=== PATIENT | male | born 1945 | race African-American/Black ===

== ENCOUNTER 2017-03-15 13:17 | Observation (INO) ==
[2017-03-15 14:17] LABS: PT Patient Result 10.3 SECS
[2017-03-15 14:28] LABS: Alanine Aminotransferase 13 U/L (16-61); Albumin 3.9 G/DL (3.4-5.0); Alkaline Phosphatase 77 U/L (45-117); Aspartate Amino Transferase 14 U/L (0-37); Blood Urea Nitrogen 22 MG/DL (7-18); Calcium 9.5 MG/DL (8.5-10.1); Glucose 161 MG/DL (74-106); Magnesium 1.9 MG/DL (1.8-2.4); Osmolality,Calculated 278.8 MOS/KG (273-304); Potassium 3.9 MMOL/L (3.5-5.1); Sodium 137 MMOL/L (136-145); Total Protein 8.8 G/DL (6.4-8.3); Troponin I Only < 0.015 NG/ML (0.00-0.045)
[2017-03-15 16:55] LABS: Basophils % 0.4 % (0.0-0.8); Eosinophils % 0.7 % (0.00-10.9); Hematocrit 40.3 VOL% (42.0-52.0); Hemoglobin 13.5 GM/DL (14.0-18.0); Immature Granulocytes % 0.4 %; Immature Granulocytes Absolute 0.02 #; Lymphocytes # 1.5 10*3/uL (1.4-4.0); Lymphocytes % 27.6 % (21.2-54.2); Mean Corpuscular HGB Conc 33.5 GM/DL (32-36); Mean Corpuscular Hemoglobin 29 PG (27-34); Mean Corpuscular Volume 87.8 FL (87-102); Mean Platelet Volume 11.3 FL (9.6-12.0); Monocytes # 0.4 10*3/uL (0.11-0.8); Monocytes % 7.3 % (1.7-12.7); Neutrophils # 3.5 10*3/uL (1.4-7.4); Neutrophils % 63.6 % (38.7-73.9); Platelet Count 238 T/CUMM (130-400); Red Blood Count 4.59 MC/CUMM (3.8-5.5); White Blood Count 5.5 T/CUMM (4-12)
[2017-03-15] MEDS ORDERED: KETOROLAC 30 MG/1 ML VIAL IV STA (18:28)
[2017-03-15] MEDS ORDERED: ASPIRIN 325 MG TABLET PO STA (18:28)
[2017-03-15] MEDS ORDERED: PANTOPRAZOLE 40 MG VIAL IV STA (18:29)
[2017-03-15] MEDS ORDERED: ASPIRIN 325 MG TABLET ONE (18:39)
[2017-03-15] MEDS ORDERED: KETOROLAC 30 MG/1 ML VIAL ONE ×2 (18:39→20:01)
[2017-03-15] MEDS ORDERED: PANTOPRAZOLE 40 MG VIAL IV ONE ×2 (18:39→20:01)
[2017-03-15] MEDS ORDERED: DONEPEZIL 10 MG TABLET PO SCH (21:00)
[2017-03-15] MEDS ORDERED: ONDANSETRON 4 MG/2 ML VIAL IV PRN (21:03)
[2017-03-15] MEDS ORDERED: ONDANSETRON ODT 4 MG TABLET PO PRN (21:07)
[2017-03-15] MEDS ORDERED: LORazepam 0.5 MG TABLET PO PRN (21:07)
[2017-03-15] MEDS ORDERED: IBUPROFEN 800 MG TABLET PO PRN (21:07)
[2017-03-16 00:02] LABS: Albumin 3.7 G/DL (3.4-5.0); Bilirubin,Total 0.5 MG/DL (0.2-1.0); Calcium 8.9 MG/DL (8.5-10.1); Total Protein 7.6 G/DL (6.4-8.3)
[2017-03-16 00:14] LABS: Magnesium 1.9 MG/DL (1.8-2.4); Risk Ratio 2.84
[2017-03-16] MEDS: INSULIN REGULAR 100 UNIT/ML SUBCUT SCH ×3 (00:20→13:26)
[2017-03-16] MEDS: METOPROLOL TARTRATE 25 MG TABLET PO SCH ×2 (00:20→10:16)
[2017-03-16] MEDS ORDERED: METHOCARBAMOL 750 MG TABLET PO SCH (09:00)
[2017-03-16] MEDS ORDERED: ASPIRIN EC 325 MG TABLET PO SCH (09:00)
[2017-03-16] MEDS ORDERED: amLODIPine 5 MG TABLET PO SCH (09:00)
[2017-03-16] MEDS ORDERED: hydrALAZINE 10 MG TABLET PO SCH (09:00)
[2017-03-16] MEDS ORDERED: ENOXAPARIN 40 MG/0.4 ML SYRINGE SUBCUT SCH (09:00)
[2017-03-16] MEDS ORDERED: CHLORTHALIDONE 25 MG TABLET PO SCH (09:00)
[2017-03-16] MEDS ORDERED: GABAPENTIN 100 MG CAPSULE PO SCH (09:00)
[2017-03-16] MEDS ORDERED: SUCRALFATE 1 GM TABLET PO SCH (09:00)
[2017-03-16] MEDS ORDERED: LISINOPRIL 20 MG TABLET PO SCH (09:00)
[2017-03-16] MEDS ORDERED: MULTIVITAMIN (CENTRUM) TABLET PO SCH (09:00)
[2017-03-16 11:22] VITALS: BP 179/80
[2017-03-16] MEDS ORDERED: DEXTROSE 50% 25 GM/50 ML VIAL IV PRN (13:22)
[2017-03-16] MEDS ORDERED: GLUCAGON 1 MG VIAL IM PRN (13:22)
[2017-03-16] MEDS ORDERED: ROSUVASTATIN 20 MG TABLET PO SCH (21:00)
[2017-03-22] MEDS ORDERED: ERGOCALCIFEROL 50,000 UNIT CAPSULE PO SCH (09:00)
== END 2017-03-16 15:10 | disposition home or self-care (01) ==
LOC: N.EDINP 13:17 → N.ED 13:17 → N.TELES 21:46
PROVIDERS: ADMIT Internal Medicine; ATTEND Internal Medicine

== ENCOUNTER 2018-02-21 08:45 | Inpatient (IN) ==
[2018-02-21] MEDS ORDERED: SODIUM CHLORIDE 0.9% 1,000 ML IV STA ×2 (09:16→10:12)
[2018-02-21] MEDS ORDERED: ONDANSETRON 4 MG/2 ML VIAL IV STA (09:16)
[2018-02-21 09:43] LABS: Basophils % 0.5 % (0.0-0.8); Eosinophils # 0.2 10*3/uL (0.0-0.87); Hematocrit 29.3 VOL% (42.0-52.0); Hemoglobin 9.9 GM/DL (14.0-18.0); Immature Granulocytes % 0.6 %; Immature Granulocytes Absolute 0.05 #; Lymphocytes # 1.5 10*3/uL (1.4-4.0); Mean Corpuscular HGB Conc 33.8 GM/DL (32-36); Mean Corpuscular Hemoglobin 29 PG (27-34); Mean Corpuscular Volume 86.9 FL (87-102); Mean Platelet Volume 10.7 FL (9.6-12.0); Monocytes # 0.6 10*3/uL (0.11-0.8); Monocytes % 7.1 % (1.7-12.7); Neutrophils % 71.8 % (38.7-73.9); Platelet Count 388 T/CUMM (130-400); Red Blood Count 3.37 MC/CUMM (3.8-5.5); White Blood Count 8.4 T/CUMM (4-12)
[2018-02-21 10:06] LABS: Alanine Aminotransferase 12 U/L (16-61); Alkaline Phosphatase 73 U/L (45-117); Aspartate Amino Transferase 11 U/L (0-37); Bilirubin,Total < 0.39 MG/DL (0.2-1.0); Blood Urea Nitrogen 45 MG/DL (7-18); Calcium 9.4 MG/DL (8.5-10.1); Glucose 393 MG/DL (74-106); Osmolality,Calculated 289.7 MOS/KG (273-304); Potassium 3.7 MMOL/L (3.5-5.1); Prealbumin 14.9 MG/DL (20-40); Sodium 131 MMOL/L (136-145)
[2018-02-21] MEDS ORDERED: INSULIN LISPRO 100 UNIT/ML SUBCUT STA (10:13)
[2018-02-21] MEDS ORDERED: GLUCAGON 1 MG VIAL IM PRN (12:19)
[2018-02-21] MEDS ORDERED: DEXTROSE 50% 25 GM/50 ML VIAL IV PRN (12:19)
[2018-02-21] MEDS: PANTOPRAZOLE 40 MG TABLET PO SCH ×3 (16:23→21:55)
[2018-02-21] MEDS: SODIUM CHLORIDE 0.9% 1,000 ML IV SCH ×2 (16:24→22:56)
[2018-02-21] MEDS: GABAPENTIN 100 MG CAPSULE PO SCH ×2 (16:24→21:55)
[2018-02-21] MEDS: INSULIN REGULAR 100 UNIT/ML SUBCUT SCH (18:17)
[2018-02-21] MEDS: INSULIN GLARGINE 100 UNIT/ML SUBCUT SCH (20:53)
[2018-02-21] MEDS ORDERED: NON-FORMULARY MEDICATION (Metformin Hcl [Metformin Hcl] 1,000 MG) PO SCH (21:00)
[2018-02-21] MEDS: METOCLOPRAMIDE 10 MG/10 ML UDCUP PO SCH (21:55)
[2018-02-21] MEDS: DONEPEZIL 10 MG TABLET PO SCH (21:55)
[2018-02-22] MEDS: INSULIN REGULAR 100 UNIT/ML SUBCUT SCH ×4 (01:29→18:00)
[2018-02-22] MEDS: SODIUM CHLORIDE 0.9% 1,000 ML IV SCH ×2 (01:30→20:10)
[2018-02-22 05:18] LABS: Basophils % 0.3 % (0.0-0.8); Eosinophils # 0.1 10*3/uL (0.0-0.87); Eosinophils % 2.2 % (0.00-10.9); Hematocrit 25.4 VOL% (42.0-52.0); Hemoglobin 8.2 GM/DL (14.0-18.0); Immature Granulocytes % 0.6 %; Immature Granulocytes Absolute 0.04 #; Lymphocytes # 1.4 10*3/uL (1.4-4.0); Mean Corpuscular HGB Conc 32.3 GM/DL (32-36); Mean Corpuscular Hemoglobin 29 PG (27-34); Mean Corpuscular Volume 89.1 FL (87-102); Mean Platelet Volume 10.7 FL (9.6-12.0); Monocytes # 0.6 10*3/uL (0.11-0.8); Monocytes % 9.1 % (1.7-12.7); Neutrophils # 4.1 10*3/uL (1.4-7.4); Neutrophils % 64.8 % (38.7-73.9); Platelet Count 260 T/CUMM (130-400); Red Blood Count 2.85 MC/CUMM (3.8-5.5); Red Cell Distribution Width 12.2 % (9.3-17.3); White Blood Count 6.3 T/CUMM (4-12)
[2018-02-22 05:54] LABS: Calcium 7.9 MG/DL (8.5-10.1); Osmolality,Calculated 296.1 MOS/KG (273-304); Potassium 3.6 MMOL/L (3.5-5.1)
[2018-02-22] MEDS: METOCLOPRAMIDE 10 MG/10 ML UDCUP PO SCH ×4 (08:00→21:45)
[2018-02-22] MEDS: MULTIVITAMIN (CENTRUM) TABLET PO SCH (09:00)
[2018-02-22] MEDS: PANTOPRAZOLE 40 MG TABLET PO SCH ×2 (09:00→21:45)
[2018-02-22] MEDS ORDERED: SUCRALFATE 1 GM TABLET PO SCH (09:00)
[2018-02-22] MEDS: THIAMINE 100 MG TABLET PO SCH (09:00)
[2018-02-22] MEDS: CYANOCOBALAMIN 100 MCG TABLET PO SCH (09:00)
[2018-02-22] MEDS: ASPIRIN CHEW 81 MG TABLET PO SCH (09:00)
[2018-02-22] MEDS: GABAPENTIN 100 MG CAPSULE PO SCH ×2 (09:00→21:45)
[2018-02-22] MEDS: MORPHINE 4 MG/1 ML VIAL IV PRN ×2 (13:49→21:45)
[2018-02-22] MEDS: ONDANSETRON 4 MG/2 ML VIAL IV PRN ×2 (13:49→21:46)
[2018-02-22] MEDS: DONEPEZIL 10 MG TABLET PO SCH (21:45)
[2018-02-22] MEDS: INSULIN GLARGINE 100 UNIT/ML SUBCUT SCH (21:45)
[2018-02-23] MEDS: INSULIN REGULAR 100 UNIT/ML SUBCUT SCH ×4 (01:26→18:35)
[2018-02-23] MEDS: SODIUM CHLORIDE 0.9% 1,000 ML IV SCH ×2 (04:52→05:20)
[2018-02-23 05:11] LABS: Basophils % 0.3 % (0.0-0.8); Eosinophils % 0.4 % (0.00-10.9); Hematocrit 31.8 VOL% (42.0-52.0); Hemoglobin 10.1 GM/DL (14.0-18.0); Immature Granulocytes % 0.6 %; Immature Granulocytes Absolute 0.06 #; Lymphocytes # 1.4 10*3/uL (1.4-4.0); Lymphocytes % 13.6 % (21.2-54.2); Mean Corpuscular HGB Conc 31.8 GM/DL (32-36); Mean Corpuscular Hemoglobin 29 PG (27-34); Mean Corpuscular Volume 91.1 FL (87-102); Mean Platelet Volume 10.3 FL (9.6-12.0); Monocytes # 0.6 10*3/uL (0.11-0.8); Monocytes % 5.7 % (1.7-12.7); Neutrophils # 8.2 10*3/uL (1.4-7.4); Neutrophils % 79.4 % (38.7-73.9); Platelet Count 327 T/CUMM (130-400); Red Blood Count 3.49 MC/CUMM (3.8-5.5); Red Cell Distribution Width 12.1 % (9.3-17.3); White Blood Count 10.4 T/CUMM (4-12)
[2018-02-23 05:35] LABS: Calcium 8.6 MG/DL (8.5-10.1); Osmolality,Calculated 283.7 MOS/KG (273-304); Potassium 4.2 MMOL/L (3.5-5.1)
[2018-02-23] MEDS: METOCLOPRAMIDE 10 MG/10 ML UDCUP PO SCH ×4 (08:00→20:38)
[2018-02-23] MEDS: GABAPENTIN 100 MG CAPSULE PO SCH ×3 (09:00→20:38)
[2018-02-23] MEDS ORDERED: PROPOFOL 200 MG/20 ML VIAL IV ONE (09:00)
[2018-02-23] MEDS ORDERED: LIDOCAINE 2% 5 ML VIAL ONE (09:00)
[2018-02-23] MEDS: MULTIVITAMIN (CENTRUM) TABLET PO SCH (09:00)
[2018-02-23] MEDS: ASPIRIN CHEW 81 MG TABLET PO SCH (09:00)
[2018-02-23] MEDS: PANTOPRAZOLE 40 MG TABLET PO SCH ×2 (09:00→20:38)
[2018-02-23] MEDS: THIAMINE 100 MG TABLET PO SCH (09:00)
[2018-02-23] MEDS: CYANOCOBALAMIN 100 MCG TABLET PO SCH (09:00)
[2018-02-23] MEDS ORDERED: MAGNESIUM HYDROXIDE SUSP 30 ML UDCUP PO ONE (12:24)
[2018-02-23] MEDS: INSULIN GLARGINE 100 UNIT/ML SUBCUT SCH (20:38)
[2018-02-23] MEDS: DONEPEZIL 10 MG TABLET PO SCH (20:38)
[2018-02-24 00:06] LABS: Apearance,Urine CLEAR (Clear); Bacteria,Urine Occasional /HPF (Few); Bilirubin,Urine Negative (Negative); Blood, Urine Negative (Negative); Glucose,Urine (UA) >=500 mg/dL (Negative); Ketones,Urine Negative (Negative); Nitrite,Urine Negative (Negative); Protein,Urine Negative; RBC,Urine <1 /HPF (0-4); Urine Color Straw (Yellow); Urine Specific Gravity 1.013 (1.001-1.035); Urine Urobilinogen < 2.0 EU/DL (0.2-1.0); WBC,Urine 1 /HPF (0-6)
[2018-02-24] MEDS: INSULIN REGULAR 100 UNIT/ML SUBCUT SCH ×4 (00:53→17:42)
[2018-02-24] MEDS: SODIUM CHLORIDE 0.9% 1,000 ML IV SCH ×3 (05:22→15:45)
[2018-02-24 06:19] LABS: Calcium 8.4 MG/DL (8.5-10.1); Osmolality,Calculated 277.4 MOS/KG (273-304); Potassium 3.3 MMOL/L (3.5-5.1)
[2018-02-24 07:08] LABS: Basophils % 0.3 % (0.0-0.8); Eosinophils # 0.1 10*3/uL (0.0-0.87); Hematocrit 25.2 VOL% (42.0-52.0); Hemoglobin 8.2 GM/DL (14.0-18.0); Immature Granulocytes % 0.2 %; Immature Granulocytes Absolute 0.02 #; Lymphocytes # 1.4 10*3/uL (1.4-4.0); Lymphocytes % 14.5 % (21.2-54.2); Mean Corpuscular HGB Conc 32.5 GM/DL (32-36); Mean Corpuscular Hemoglobin 29 PG (27-34); Mean Corpuscular Volume 89.7 FL (87-102); Mean Platelet Volume 11.2 FL (9.6-12.0); Monocytes # 0.7 10*3/uL (0.11-0.8); Monocytes % 7.5 % (1.7-12.7); Neutrophils # 7.4 10*3/uL (1.4-7.4); Neutrophils % 76.5 % (38.7-73.9); Red Blood Count 2.81 MC/CUMM (3.8-5.5); Red Cell Distribution Width 12.1 % (9.3-17.3); White Blood Count 9.7 T/CUMM (4-12)
[2018-02-24 07:10] LABS: Platelet Count 259 T/CUMM (130-400)
[2018-02-24] MEDS ORDERED: POTASSIUM CHLORIDE 20 MEQ TABLET PO ONE (07:27)
[2018-02-24] MEDS: ASPIRIN CHEW 81 MG TABLET PO SCH (09:19)
[2018-02-24] MEDS: MULTIVITAMIN (CENTRUM) TABLET PO SCH (09:19)
[2018-02-24] MEDS: PANTOPRAZOLE 40 MG TABLET PO SCH ×2 (09:19→21:14)
[2018-02-24] MEDS: METOCLOPRAMIDE 10 MG/10 ML UDCUP PO SCH ×4 (09:19→21:14)
[2018-02-24] MEDS: GABAPENTIN 100 MG CAPSULE PO SCH ×3 (09:19→21:14)
[2018-02-24] MEDS: THIAMINE 100 MG TABLET PO SCH (09:19)
[2018-02-24] MEDS ORDERED: BISACODYL 5 MG TABLET PO SCH (09:30)
[2018-02-24] MEDS: CYANOCOBALAMIN 100 MCG TABLET PO SCH (10:19)
[2018-02-24] MEDS: DEXTROSE 5% NACL 0.45% 1,000 ML IV SCH (13:06)
[2018-02-24] MEDS ORDERED: BISACODYL 5 MG TABLET PO ONE (14:02)
[2018-02-24] MEDS: INSULIN GLARGINE 100 UNIT/ML SUBCUT SCH (21:14)
[2018-02-24] MEDS: DONEPEZIL 10 MG TABLET PO SCH (21:14)
[2018-02-25] MEDS: INSULIN REGULAR 100 UNIT/ML SUBCUT SCH ×4 (01:19→19:44)
[2018-02-25] MEDS: DEXTROSE 5% NACL 0.45% 1,000 ML IV SCH ×2 (03:20→16:40)
[2018-02-25 05:06] LABS: Basophils % 0.5 % (0.0-0.8); Eosinophils # 0.2 10*3/uL (0.0-0.87); Eosinophils % 2.4 % (0.00-10.9); Hematocrit 26.2 VOL% (42.0-52.0); Hemoglobin 8.5 GM/DL (14.0-18.0); Immature Granulocytes % 0.3 %; Immature Granulocytes Absolute 0.02 #; Lymphocytes # 1.2 10*3/uL (1.4-4.0); Lymphocytes % 19.3 % (21.2-54.2); Mean Corpuscular HGB Conc 32.4 GM/DL (32-36); Mean Corpuscular Hemoglobin 29 PG (27-34); Mean Corpuscular Volume 89.1 FL (87-102); Mean Platelet Volume 10.8 FL (9.6-12.0); Monocytes # 0.7 10*3/uL (0.11-0.8); Monocytes % 11.4 % (1.7-12.7); Neutrophils # 4.2 10*3/uL (1.4-7.4); Neutrophils % 66.1 % (38.7-73.9); Platelet Count 263 T/CUMM (130-400); Red Blood Count 2.94 MC/CUMM (3.8-5.5); Red Cell Distribution Width 11.9 % (9.3-17.3); White Blood Count 6.4 T/CUMM (4-12)
[2018-02-25 05:20] LABS: Calcium 8.4 MG/DL (8.5-10.1); Osmolality,Calculated 277.8 MOS/KG (273-304); Potassium 3.8 MMOL/L (3.5-5.1)
[2018-02-25] MEDS: METOCLOPRAMIDE 10 MG/10 ML UDCUP PO SCH ×4 (07:58→20:27)
[2018-02-25] MEDS ORDERED: BISACODYL 5 MG TABLET PO ONE (08:43)
[2018-02-25] MEDS ORDERED: POLYETHYLENE GLYCOL POWDER 255 GM BOTTLE PO ONE (08:58)
[2018-02-25] MEDS: PANTOPRAZOLE 40 MG TABLET PO SCH ×2 (09:23→20:27)
[2018-02-25] MEDS: CYANOCOBALAMIN 100 MCG TABLET PO SCH (09:23)
[2018-02-25] MEDS: MULTIVITAMIN (CENTRUM) TABLET PO SCH (09:23)
[2018-02-25] MEDS: ASPIRIN CHEW 81 MG TABLET PO SCH (09:23)
[2018-02-25] MEDS: GABAPENTIN 100 MG CAPSULE PO SCH ×3 (09:23→20:26)
[2018-02-25] MEDS: THIAMINE 100 MG TABLET PO SCH (09:23)
[2018-02-25] MEDS: DONEPEZIL 10 MG TABLET PO SCH (20:27)
[2018-02-25] MEDS: INSULIN GLARGINE 100 UNIT/ML SUBCUT SCH (20:27)
[2018-02-26] MEDS: INSULIN REGULAR 100 UNIT/ML SUBCUT SCH ×3 (00:37→12:34)
[2018-02-26] MEDS: DEXTROSE 5% NACL 0.45% 1,000 ML IV SCH (05:08)
[2018-02-26 06:59] LABS: Basophils % 0.5 % (0.0-0.8); Calcium 8.2 MG/DL (8.5-10.1); Eosinophils # 0.2 10*3/uL (0.0-0.87); Eosinophils % 3.6 % (0.00-10.9); Hematocrit 24.5 VOL% (42.0-52.0); Immature Granulocytes % 0.5 %; Immature Granulocytes Absolute 0.03 #; Lymphocytes # 1.3 10*3/uL (1.4-4.0); Lymphocytes % 23.4 % (21.2-54.2); Mean Corpuscular HGB Conc 32.7 GM/DL (32-36); Mean Corpuscular Hemoglobin 29 PG (27-34); Mean Corpuscular Volume 89.4 FL (87-102); Mean Platelet Volume 10.8 FL (9.6-12.0); Monocytes # 0.6 10*3/uL (0.11-0.8); Monocytes % 11.4 % (1.7-12.7); Neutrophils # 3.4 10*3/uL (1.4-7.4); Neutrophils % 60.6 % (38.7-73.9); Osmolality,Calculated 278.4 MOS/KG (273-304); Platelet Count 267 T/CUMM (130-400); Potassium 3.5 MMOL/L (3.5-5.1); Red Blood Count 2.74 MC/CUMM (3.8-5.5); Red Cell Distribution Width 12.4 % (9.3-17.3); White Blood Count 5.6 T/CUMM (4-12)
[2018-02-26] MEDS: METOCLOPRAMIDE 10 MG/10 ML UDCUP PO SCH ×3 (07:30→16:18)
[2018-02-26] MEDS: GABAPENTIN 100 MG CAPSULE PO SCH ×2 (09:00→16:18)
[2018-02-26] MEDS: ASPIRIN CHEW 81 MG TABLET PO SCH ×2 (09:00→12:42)
[2018-02-26] MEDS: THIAMINE 100 MG TABLET PO SCH ×2 (09:00→12:43)
[2018-02-26] MEDS: MULTIVITAMIN (CENTRUM) TABLET PO SCH ×2 (09:00→12:42)
[2018-02-26] MEDS: PANTOPRAZOLE 40 MG TABLET PO SCH ×2 (09:00→12:43)
[2018-02-26] MEDS: CYANOCOBALAMIN 100 MCG TABLET PO SCH ×2 (09:00→12:42)
[2018-02-26] MEDS ORDERED: PNEUMOCOCCAL VACCINE (13 VALENT) 0.5 ML SYRINGE IM ONE (16:27)
[2018-02-26 20:09] VITALS: BP 154/78
== END 2018-02-26 17:25 | disposition home health service (06) | DRG 392 ==
LOC: N.ED 08:45 → N.EDINP 11:32 → N.5E 12:59
PROVIDERS: ADMIT Internal Medicine; ATTEND Internal Medicine

== ENCOUNTER 2018-08-01 15:26 | Inpatient (IN) ==
[2018-08-01 19:02] LABS: Basophils % 0.2 % (0.0-0.8); Eosinophils % 0.1 % (0.00-10.9); Hemoglobin 8.9 GM/DL (14.0-18.0); Immature Granulocytes % 0.8 %; Immature Granulocytes Absolute 0.13 #; Lymphocytes # 1.8 10*3/uL (1.4-4.0); Lymphocytes % 10.5 % (21.2-54.2); Mean Corpuscular HGB Conc 31.8 GM/DL (32-36); Mean Corpuscular Volume 88.6 FL (87-102); Monocytes % 6.4 % (1.7-12.7); Platelet Count 253 T/CUMM (130-400); Red Blood Count 3.16 MC/CUMM (3.8-5.5); Red Cell Distribution Width 13.1 % (9.3-17.3); White Blood Count 16.9 T/CUMM (4-12)
[2018-08-01 19:26] LABS: Albumin 2.6 G/DL (3.4-5.0); Bilirubin,Total 0.6 MG/DL (0.2-1.0); Calcium 8.1 MG/DL (8.5-10.1); Osmolality,Calculated 278.1 MOS/KG (273-304); Total Protein 7.1 G/DL (6.4-8.3)
[2018-08-01] MEDS ORDERED: cefTRIAXone 1,000 MG in SODIUM CHLORIDE 0.9% 100 ML IV STA (20:13)
[2018-08-01] MEDS ORDERED: AZITHROMYCIN INJ 500 MG in SODIUM CHLORIDE 0.9% 250 ML IV STA (20:14)
[2018-08-01] MEDS ORDERED: DEXTROSE 50% 25 GM/50 ML VIAL IV PRN (20:23)
[2018-08-01] MEDS ORDERED: GLUCAGON 1 MG VIAL IM PRN (20:23)
[2018-08-01] MEDS ORDERED: ACETAMINOPHEN 325 MG TABLET PO PRN (20:23)
[2018-08-01] MEDS ORDERED: ONDANSETRON 4 MG/2 ML VIAL IV PRN (20:23)
[2018-08-01] MEDS ORDERED: SODIUM CHLORIDE 0.9% 1,000 ML IV SCH (22:32)
[2018-08-01] MEDS: INSULIN REGULAR 100 UNIT/ML SUBCUT SCH (23:05)
[2018-08-01] MEDS: METOPROLOL TARTRATE 25 MG TABLET PO SCH (23:06)
[2018-08-01] MEDS: hydrALAZINE 10 MG TABLET PO SCH (23:06)
[2018-08-01] MEDS: GABAPENTIN 100 MG CAPSULE PO SCH (23:06)
[2018-08-01] MEDS: PIPERACILLIN/TAZOBACTAM 3,375 MG in SODIUM CHLORIDE 0.9% 100 ML IV SCH (23:30)
[2018-08-01] MEDS: PANTOPRAZOLE 40 MG TABLET PO SCH (23:32)
[2018-08-02] MEDS: ALBUTEROL/IPRATROPIUM 3 ML NEB RESP TX SCH ×4 (00:25→19:08)
[2018-08-02 03:40] LABS: Apearance,Urine CLEAR (Clear); Bilirubin,Urine Negative (Negative); Blood, Urine Negative (Negative); Glucose,Urine (UA) >=500 mg/dL (Negative); Hyaline Casts,Urine 12 /LPF (0-3); Ketones,Urine Negative (Negative); Mucus,Urine Occasional /LPF (Occasional); Nitrite,Urine Negative (Negative); Protein,Urine 30 MG/DL; RBC,Urine 1 /HPF (0-4); Sperm,Urine Few /HPF (Negative); Urine Color Yellow (Yellow); Urine Specific Gravity 1.022 (1.001-1.035); Urine Urobilinogen < 2.0 EU/DL (0.2-1.0); WBC,Urine 1 /HPF (0-6)
[2018-08-02] MEDS: PIPERACILLIN/TAZOBACTAM 3,375 MG in SODIUM CHLORIDE 0.9% 100 ML IV SCH ×3 (06:50→22:04)
[2018-08-02 07:01] LABS: Basophils % 0.3 % (0.0-0.8); Eosinophils # 0.1 10*3/uL (0.0-0.87); Eosinophils % 0.8 % (0.00-10.9); Hematocrit 27.2 VOL% (42.0-52.0); Hemoglobin 8.5 GM/DL (14.0-18.0); Immature Granulocytes % 0.6 %; Immature Granulocytes Absolute 0.07 #; Lymphocytes # 1.3 10*3/uL (1.4-4.0); Lymphocytes % 10.5 % (21.2-54.2); Mean Corpuscular HGB Conc 31.3 GM/DL (32-36); Mean Corpuscular Volume 89.5 FL (87-102); Monocytes % 6.3 % (1.7-12.7); Neutrophils % 81.5 % (38.7-73.9); Platelet Count 250 T/CUMM (130-400); Red Blood Count 3.04 MC/CUMM (3.8-5.5); Red Cell Distribution Width 12.9 % (9.3-17.3); White Blood Count 12.5 T/CUMM (4-12)
[2018-08-02 07:31] LABS: Albumin 2.4 G/DL (3.4-5.0); Bilirubin,Total 0.4 MG/DL (0.2-1.0); Calcium 8.3 MG/DL (8.5-10.1); Total Protein 6.7 G/DL (6.4-8.3)
[2018-08-02] MEDS ORDERED: PROPOFOL 500 MG/50 ML BOTTLE IV ONE (09:00)
[2018-08-02] MEDS ORDERED: ETOMIDATE 20 MG/10 ML VIAL IV ONE (09:00)
[2018-08-02] MEDS ORDERED: LIDOCAINE 2% 5 ML VIAL ONE (09:00)
[2018-08-02] MEDS ORDERED: PANTOPRAZOLE 40 MG TABLET PO SCH (09:00)
[2018-08-02] MEDS: MULTIVITAMIN (CENTRUM) TABLET PO SCH (09:46)
[2018-08-02] MEDS: GABAPENTIN 100 MG CAPSULE PO SCH ×3 (09:47→21:59)
[2018-08-02] MEDS: INSULIN REGULAR 100 UNIT/ML SUBCUT SCH ×4 (09:47→21:59)
[2018-08-02] MEDS: METOPROLOL TARTRATE 25 MG TABLET PO SCH ×2 (09:48→21:28)
[2018-08-02] MEDS: hydrALAZINE 10 MG TABLET PO SCH ×4 (09:48→20:42)
[2018-08-02] MEDS: amLODIPine 5 MG TABLET PO SCH (09:49)
[2018-08-02] MEDS: PANTOPRAZOLE 40 MG TABLET PO SCH ×2 (09:49→21:59)
[2018-08-02] MEDS: LISINOPRIL 20 MG TABLET PO SCH (09:49)
[2018-08-02] MEDS ORDERED: cefTRIAXone 1,000 MG in SYRINGE 1 EACH IV SCH (21:00)
[2018-08-02] MEDS ORDERED: AZITHROMYCIN INJ 500 MG in SODIUM CHLORIDE 0.9% 250 ML IV SCH (21:00)
[2018-08-02] MEDS: LEVOFLOXACIN INJ 500 MG in PREMIX 1 EACH IV SCH (21:20)
[2018-08-03] MEDS: ALBUTEROL/IPRATROPIUM 3 ML NEB RESP TX SCH ×4 (00:15→19:15)
[2018-08-03 05:49] LABS: Basophils % 0.2 % (0.0-0.8); Eosinophils # 0.1 10*3/uL (0.0-0.87); Eosinophils % 0.6 % (0.00-10.9); Hematocrit 23.6 VOL% (42.0-52.0); Hemoglobin 7.6 GM/DL (14.0-18.0); Immature Granulocytes % 0.2 %; Immature Granulocytes Absolute 0.02 #; Lymphocytes % 11.6 % (21.2-54.2); Mean Corpuscular HGB Conc 32.2 GM/DL (32-36); Mean Corpuscular Volume 88.4 FL (87-102); Mean Platelet Volume 10.3 FL (9.6-12.0); Monocytes % 7.3 % (1.7-12.7); Neutrophils % 80.1 % (38.7-73.9); Platelet Count 236 T/CUMM (130-400); Red Blood Count 2.67 MC/CUMM (3.8-5.5); Red Cell Distribution Width 12.9 % (9.3-17.3); White Blood Count 8.2 T/CUMM (4-12)
[2018-08-03 06:07] LABS: Calcium 8.2 MG/DL (8.5-10.1); Osmolality,Calculated 283.8 MOS/KG (273-304)
[2018-08-03] MEDS: PIPERACILLIN/TAZOBACTAM 3,375 MG in SODIUM CHLORIDE 0.9% 100 ML IV SCH ×3 (06:16→23:49)
[2018-08-03] MEDS ORDERED: LACTATED RINGERS 1,000 ML IV SCH (07:30)
[2018-08-03] MEDS ORDERED: SODIUM CHLORIDE 0.9% 1,000 ML IV PRN (08:58)
[2018-08-03] MEDS ORDERED: FUROSEMIDE 20 MG/2 ML VIAL IV PRN (08:58)
[2018-08-03] MEDS ORDERED: AZITHROMYCIN 250 MG TABLET PO SCH (09:00)
[2018-08-03] MEDS: hydrALAZINE 10 MG TABLET PO SCH ×4 (10:55→21:18)
[2018-08-03] MEDS: GABAPENTIN 100 MG CAPSULE PO SCH ×3 (10:55→21:21)
[2018-08-03] MEDS: MULTIVITAMIN (CENTRUM) TABLET PO SCH (10:56)
[2018-08-03] MEDS: METOPROLOL TARTRATE 25 MG TABLET PO SCH ×2 (10:56→21:20)
[2018-08-03] MEDS: LISINOPRIL 20 MG TABLET PO SCH (10:56)
[2018-08-03] MEDS: PANTOPRAZOLE 40 MG TABLET PO SCH ×2 (10:56→21:21)
[2018-08-03] MEDS: amLODIPine 5 MG TABLET PO SCH (10:56)
[2018-08-03] MEDS: INSULIN REGULAR 100 UNIT/ML SUBCUT SCH ×4 (10:59→21:20)
[2018-08-03] MEDS: METOCLOPRAMIDE 10 MG/2 ML VIAL IV SCH ×2 (12:35→17:29)
[2018-08-03] MEDS: LEVOFLOXACIN INJ 500 MG in PREMIX 1 EACH IV SCH (21:21)
[2018-08-04] MEDS: ALBUTEROL/IPRATROPIUM 3 ML NEB RESP TX SCH ×3 (00:34→13:47)
[2018-08-04] MEDS: METOCLOPRAMIDE 10 MG/2 ML VIAL IV SCH (01:21)
[2018-08-04 05:45] LABS: Basophils % 0.3 % (0.0-0.8); Eosinophils # 0.1 10*3/uL (0.0-0.87); Eosinophils % 1.5 % (0.00-10.9); Hematocrit 31.5 VOL% (42.0-52.0); Immature Granulocytes % 0.3 %; Immature Granulocytes Absolute 0.02 #; Mean Corpuscular HGB Conc 31.7 GM/DL (32-36); Mean Corpuscular Volume 87.3 FL (87-102); Mean Platelet Volume 9.6 FL (9.6-12.0); Monocytes % 7.5 % (1.7-12.7); Neutrophils % 76.4 % (38.7-73.9); Platelet Count 259 T/CUMM (130-400); Red Blood Count 3.61 MC/CUMM (3.8-5.5); Red Cell Distribution Width 13.3 % (9.3-17.3); White Blood Count 7.2 T/CUMM (4-12)
[2018-08-04] MEDS: PANTOPRAZOLE 40 MG TABLET PO SCH (08:57)
[2018-08-04] MEDS: GABAPENTIN 100 MG CAPSULE PO SCH (08:57)
[2018-08-04] MEDS: MULTIVITAMIN (CENTRUM) TABLET PO SCH (08:57)
[2018-08-04] MEDS: LISINOPRIL 20 MG TABLET PO SCH (08:57)
[2018-08-04] MEDS: METOPROLOL TARTRATE 25 MG TABLET PO SCH (08:57)
[2018-08-04] MEDS: amLODIPine 5 MG TABLET PO SCH (08:57)
[2018-08-04] MEDS: hydrALAZINE 10 MG TABLET PO SCH (08:58)
[2018-08-04] MEDS: INSULIN REGULAR 100 UNIT/ML SUBCUT SCH ×2 (09:08→13:49)
[2018-08-04 13:23] VITALS: BP 147/86
== END 2018-08-04 15:00 | disposition home health service (06) | DRG 193 ==
LOC: N.ED 15:26 → N.EDINP 20:23 → N.5E 21:10
PROVIDERS: ADMIT Internal Medicine; ATTEND Internal Medicine

== ENCOUNTER 2018-09-01 06:34 | Observation (INO) ==
[2018-09-01] MEDS ORDERED: DEXTROSE 5% NACL 0.45% 1,000 ML IV SCH (07:00)
[2018-09-01 07:47] LABS: Basophils % 0.2 % (0.0-0.8); Eosinophils % 0.1 % (0.00-10.9); Hematocrit 37.1 VOL% (42.0-52.0); Hemoglobin 11.7 GM/DL (14.0-18.0); Immature Granulocytes % 0.3 %; Immature Granulocytes Absolute 0.04 #; Lymphocytes # 0.8 10*3/uL (1.4-4.0); Lymphocytes % 6.8 % (21.2-54.2); Mean Corpuscular HGB Conc 31.5 GM/DL (32-36); Mean Corpuscular Volume 86.9 FL (87-102); Mean Platelet Volume 9.6 FL (9.6-12.0); Monocytes % 5.3 % (1.7-12.7); Neutrophils % 87.3 % (38.7-73.9); Platelet Count 196 T/CUMM (130-400); Red Blood Count 4.27 MC/CUMM (3.8-5.5); Red Cell Distribution Width 13.6 % (9.3-17.3); White Blood Count 11.7 T/CUMM (4-12)
[2018-09-01 08:08] LABS: Calcium 9.3 MG/DL (8.5-10.1); Osmolality,Calculated 283.3 MOS/KG (273-304)
[2018-09-01] MEDS ORDERED: POTASSIUM CHLORIDE 20 MEQ TABLET PO STA (09:03)
[2018-09-01 09:22] LABS: Apearance,Urine CLEAR (Clear); Bilirubin,Urine Negative (Negative); Blood, Urine Moderate mg/dL (Negative); Glucose,Urine (UA) >=500 mg/dL (Negative); Hyaline Casts,Urine 1 /LPF (0-3); Ketones,Urine Negative (Negative); Nitrite,Urine Negative (Negative); Protein,Urine 100 MG/DL; RBC,Urine 5 /HPF (0-4); Urine Color Yellow (Yellow); Urine Specific Gravity 1.013 (1.001-1.035); Urine Urobilinogen < 2.0 EU/DL (0.2-1.0); WBC,Urine 2 /HPF (0-6)
[2018-09-01] MEDS ORDERED: ACETAMINOPHEN 325 MG TABLET PO PRN ×2 (10:37→15:47)
[2018-09-01] MEDS ORDERED: DEXTROSE 50% 25 GM/50 ML VIAL IV PRN ×2 (10:37→15:46)
[2018-09-01] MEDS ORDERED: GLUCAGON 1 MG VIAL IM PRN ×2 (10:37→15:46)
[2018-09-01] MEDS ORDERED: ONDANSETRON 4 MG/2 ML VIAL IV PRN (10:37)
[2018-09-01] MEDS: ENOXAPARIN 40 MG/0.4 ML SYRINGE SUBCUT SCH (10:54)
[2018-09-01 11:12] LABS: Risk Ratio 2.86; Thyroid Stimulating Hormone 3.11 uIU/ml (0.358-3.74); VLDL CHOLESTEROL 6.6 MG/DL
[2018-09-01] MEDS ORDERED: MAGNESIUM SULF RIDER 2 GM in PREMIX 1 EACH IV ONE (15:49)
[2018-09-01] MEDS: MULTIVITAMIN (CENTRUM) TABLET PO SCH (16:12)
[2018-09-01] MEDS: SODIUM CHLORIDE 0.45% 1,000 ML IV SCH (16:13)
[2018-09-01] MEDS: INSULIN REGULAR 100 UNIT/ML SUBCUT SCH ×2 (17:25→20:39)
[2018-09-01] MEDS: GABAPENTIN 100 MG CAPSULE PO SCH (20:36)
[2018-09-01] MEDS: hydrALAZINE 10 MG TABLET PO SCH (20:37)
[2018-09-01] MEDS: METOPROLOL TARTRATE 25 MG TABLET PO SCH (20:37)
[2018-09-01] MEDS: PANTOPRAZOLE 40 MG TABLET PO SCH (20:39)
[2018-09-02 04:41] LABS: Basophils % 0.3 % (0.0-0.8); Eosinophils # 0.1 10*3/uL (0.0-0.87); Eosinophils % 2.2 % (0.00-10.9); Hemoglobin 8.9 GM/DL (14.0-18.0); Immature Granulocytes % 0.2 %; Immature Granulocytes Absolute 0.01 #; Lymphocytes # 1.4 10*3/uL (1.4-4.0); Lymphocytes % 24.5 % (21.2-54.2); Mean Corpuscular HGB Conc 31.8 GM/DL (32-36); Mean Corpuscular Volume 85.4 FL (87-102); Mean Platelet Volume 10.3 FL (9.6-12.0); Monocytes % 9.4 % (1.7-12.7); Neutrophils % 63.4 % (38.7-73.9); Platelet Count 162 T/CUMM (130-400); Red Blood Count 3.28 MC/CUMM (3.8-5.5); Red Cell Distribution Width 13.7 % (9.3-17.3); White Blood Count 5.8 T/CUMM (4-12)
[2018-09-02 04:59] LABS: Calcium 8.2 MG/DL (8.5-10.1); Osmolality,Calculated 284.1 MOS/KG (273-304)
[2018-09-02] MEDS ORDERED: POTASSIUM CHLORIDE 20 MEQ TABLET PO ONE ×2 (08:00→11:30)
[2018-09-02] MEDS: MULTIVITAMIN (CENTRUM) TABLET PO SCH (08:22)
[2018-09-02] MEDS: INSULIN REGULAR 100 UNIT/ML SUBCUT SCH ×2 (08:22→14:44)
[2018-09-02] MEDS: hydrALAZINE 10 MG TABLET PO SCH (08:22)
[2018-09-02] MEDS: METOPROLOL TARTRATE 25 MG TABLET PO SCH (08:22)
[2018-09-02] MEDS: GABAPENTIN 100 MG CAPSULE PO SCH (08:23)
[2018-09-02] MEDS: PANTOPRAZOLE 40 MG TABLET PO SCH (08:23)
[2018-09-02] MEDS ORDERED: PANTOPRAZOLE 40 MG TABLET PO SCH (09:00)
[2018-09-02] MEDS ORDERED: amLODIPine 5 MG TABLET PO SCH (09:00)
[2018-09-02] MEDS ORDERED: FLUCONAZOLE 100 MG TABLET PO SCH (09:00)
[2018-09-02] MEDS: ENOXAPARIN 40 MG/0.4 ML SYRINGE SUBCUT SCH (11:05)
[2018-09-02 11:43] VITALS: BP 148/105
[2018-09-02] MEDS: SODIUM CHLORIDE 0.45% 1,000 ML IV SCH (14:44)
== END 2018-09-02 15:55 | disposition home or self-care (01) ==
LOC: EDBD → EDUNIT# → N.EDINP 06:34 → N.ED 06:34 → N.EDINP 08:15 → N.2E 10:37
PROVIDERS: ADMIT Internal Medicine; ATTEND Internal Medicine

== ENCOUNTER 2019-04-12 08:41 | Inpatient (IN) ==
[2019-04-12] MEDS ORDERED: ASPIRIN 325 MG TABLET PO STA (09:08)
[2019-04-12] MEDS ORDERED: HYDROmorphone 2 MG/1 ML VIAL IV STA (09:08)
[2019-04-12] MEDS ORDERED: ONDANSETRON 4 MG/2 ML VIAL IV STA (09:08)
[2019-04-12 09:47] LABS: Basophils % 0.5 % (0.0-0.8); Eosinophils # 0.1 10*3/uL (0.0-0.87); Eosinophils % 1.6 % (0.00-10.9); Hematocrit 37.2 VOL% (42.0-52.0); Hemoglobin 12.1 GM/DL (14.0-18.0); Immature Granulocytes % 0.2 %; Immature Granulocytes Absolute 0.01 #; Lymphocytes # 1.7 10*3/uL (1.4-4.0); Lymphocytes % 26.5 % (21.2-54.2); Mean Corpuscular HGB Conc 32.5 GM/DL (32-36); Mean Corpuscular Volume 85.3 FL (87-102); Mean Platelet Volume 10.1 FL (9.6-12.0); Monocytes % 6.4 % (1.7-12.7); Neutrophils % 64.8 % (38.7-73.9); Platelet Count 280 T/CUMM (130-400); Red Blood Count 4.36 MC/CUMM (3.8-5.5); White Blood Count 6.4 T/CUMM (4-12)
[2019-04-12 10:18] LABS: Partial Thromboplastin Time 32.4 SECS (20.8-36.0)
[2019-04-12 10:23] LABS: INR 1.8; PT Patient Result 19.7 SECS (9.6-12.2)
[2019-04-12 10:37] LABS: Bilirubin,Total 0.4 MG/DL (0.2-1.0); Calcium 8.9 MG/DL (8.5-10.1); Osmolality,Calculated 277.7 MOS/KG (273-304); Total Protein 8.2 G/DL (6.4-8.3)
[2019-04-12] MEDS ORDERED: POTASSIUM CHLORIDE 20 MEQ TABLET PO STA (12:05)
[2019-04-12] MEDS ORDERED: POTASSIUM CHLORIDE 20 MEQ PACK PO STA (12:22)
[2019-04-12] MEDS ORDERED: DEXTROSE 10% 250 ML BAG IV PRN (12:50)
[2019-04-12] MEDS ORDERED: GLUCAGON 1 MG VIAL IM PRN (12:50)
[2019-04-12] MEDS ORDERED: PANTOPRAZOLE 40 MG VIAL IV SCH (13:00)
[2019-04-12] MEDS: POTASSIUM CHLORIDE INJ 40 MEQ in SODIUM CHLORIDE 0.45% 1,000 ML IV SCH ×2 (14:56→23:21)
[2019-04-12] MEDS: ONDANSETRON 4 MG/2 ML VIAL IV PRN (15:29)
[2019-04-12] MEDS: MORPHINE 4 MG/1 ML VIAL IV PRN (15:29)
[2019-04-12] MEDS: INSULIN LISPRO 100 UNIT/ML SUBCUT SCH (18:58)
[2019-04-12] MEDS: PANTOPRAZOLE 40 MG VIAL IV SCH (20:19)
[2019-04-12] MEDS ORDERED: ENOXAPARIN 40 MG/0.4 ML SYRINGE SUBCUT SCH (21:00)
[2019-04-13] MEDS: INSULIN LISPRO 100 UNIT/ML SUBCUT SCH ×4 (03:25→17:24)
[2019-04-13 05:49] LABS: Basophils % 0.6 % (0.0-0.8); Eosinophils # 0.2 10*3/uL (0.0-0.87); Eosinophils % 3.8 % (0.00-10.9); Hematocrit 27.5 VOL% (42.0-52.0); Hemoglobin 8.7 GM/DL (14.0-18.0); Immature Granulocytes % 0.4 %; Immature Granulocytes Absolute 0.02 #; Lymphocytes # 1.4 10*3/uL (1.4-4.0); Mean Corpuscular HGB Conc 31.6 GM/DL (32-36); Mean Corpuscular Volume 87.3 FL (87-102); Mean Platelet Volume 10.9 FL (9.6-12.0); Monocytes % 9.8 % (1.7-12.7); Neutrophils % 56.4 % (38.7-73.9); Platelet Count 206 T/CUMM (130-400); Red Blood Count 3.15 MC/CUMM (3.8-5.5); Red Cell Distribution Width 13.5 % (9.3-17.3); White Blood Count 4.8 T/CUMM (4-12)
[2019-04-13] MEDS: ONDANSETRON 4 MG/2 ML VIAL IV PRN (06:22)
[2019-04-13 06:53] LABS: Albumin 2.3 G/DL (3.4-5.0); Bilirubin,Total 0.4 MG/DL (0.2-1.0); Calcium 7.5 MG/DL (8.5-10.1); Osmolality,Calculated 273.8 MOS/KG (273-304); Total Protein 6.3 G/DL (6.4-8.3)
[2019-04-13] MEDS ORDERED: INSULIN REGULAR 100 UNIT/ML SUBCUT ONE (07:34)
[2019-04-13] MEDS: SODIUM CHLORIDE 0.9% 1,000 ML IV SCH ×2 (08:00→20:11)
[2019-04-13] MEDS ORDERED: propofoL 200 MG/20 ML VIAL IV ONE (09:01)
[2019-04-13] MEDS ORDERED: ETOMIDATE 20 MG/10 ML VIAL IV ONE (09:01)
[2019-04-13] MEDS ORDERED: LIDOCAINE 2% 5 ML VIAL ONE (09:01)
[2019-04-13] MEDS ORDERED: GLYCOPYRROLATE 0.4 MG/2 ML VIAL ONE (09:01)
[2019-04-13] MEDS: PANTOPRAZOLE 40 MG VIAL IV SCH ×2 (14:24→20:14)
[2019-04-13] MEDS: POTASSIUM CHLORIDE INJ 40 MEQ in SODIUM CHLORIDE 0.45% 1,000 ML IV SCH (17:27)
[2019-04-13 18:29] LABS: Apearance,Urine CLEAR (Clear); Bilirubin,Urine Negative (Negative); Blood, Urine Small mg/dL (Negative); Glucose,Urine (UA) >=500 mg/dL (Negative); Hyaline Casts,Urine 3 /LPF (0-3); Ketones,Urine 80 mg/dL (Negative); Mucus,Urine Occasional /LPF (Occasional); Nitrite,Urine Negative (Negative); Protein,Urine 30 MG/DL; RBC,Urine 1 /HPF (0-4); Squamous Epithelial Cell,Urine Occasional /HPF (0-10); Urine Color Yellow (Yellow); Urine Specific Gravity 1.028 (1.001-1.035); Urine Urobilinogen < 2.0 EU/DL (0.2-1.0); WBC,Urine 1 /HPF (0-6)
[2019-04-14] MEDS: INSULIN LISPRO 100 UNIT/ML SUBCUT SCH ×4 (00:50→18:23)
[2019-04-14 04:59] LABS: Basophils % 0.2 % (0.0-0.8); Hematocrit 25.7 VOL% (42.0-52.0); Hemoglobin 8.1 GM/DL (14.0-18.0); Immature Granulocytes % 0.7 %; Immature Granulocytes Absolute 0.04 #; Lymphocytes # 1.2 10*3/uL (1.4-4.0); Lymphocytes % 20.4 % (21.2-54.2); Mean Corpuscular HGB Conc 31.5 GM/DL (32-36); Mean Platelet Volume 11.1 FL (9.6-12.0); Monocytes % 6.6 % (1.7-12.7); Neutrophils % 72.1 % (38.7-73.9); Platelet Count 206 T/CUMM (130-400); Red Blood Count 2.92 MC/CUMM (3.8-5.5); Red Cell Distribution Width 13.3 % (9.3-17.3); White Blood Count 5.7 T/CUMM (4-12)
[2019-04-14 05:19] LABS: Albumin 2.3 G/DL (3.4-5.0); Bilirubin,Total 0.7 MG/DL (0.2-1.0); Calcium 7.5 MG/DL (8.5-10.1); Osmolality,Calculated 292.8 MOS/KG (273-304); Total Protein 6.1 G/DL (6.4-8.3)
[2019-04-14] MEDS: SODIUM CHLORIDE 0.9% 1,000 ML IV SCH ×2 (05:45→15:57)
[2019-04-14] MEDS ORDERED: cefOXitin 2,000 MG in SYRINGE 1 EACH IV ONE (06:30)
[2019-04-14] MEDS: POTASSIUM CHLORIDE RIDER 10 MEQ in PREMIX 1 EACH IV PRN ×7 (07:57→16:52)
[2019-04-14] MEDS: PANTOPRAZOLE 40 MG VIAL IV SCH ×2 (08:40→20:27)
[2019-04-14] MEDS: MORPHINE 4 MG/1 ML VIAL IV PRN ×2 (10:58→20:27)
[2019-04-14] MEDS: PROMETHAZINE 25 MG/1 ML VIAL IM PRN (11:01)
[2019-04-14] MEDS ORDERED: TRACE ELEMENTS (5) 1 ML, MULTIVITAMIN INJ 10 ML in AMINO ACIDS/DEXT/LYTES 5-20% 2,000 ML IV SCH (17:00)
[2019-04-14] MEDS ORDERED: DEXTROSE 10% 1,000 ML IV PRN (17:00)
[2019-04-14] MEDS: FAT EMULSION 20% 250 ML IV SCH (17:49)
[2019-04-14] MEDS: ONDANSETRON 4 MG/2 ML VIAL IV PRN (20:27)
[2019-04-15] MEDS: MORPHINE 4 MG/1 ML VIAL IV PRN ×2 (02:05→17:35)
[2019-04-15] MEDS: INSULIN LISPRO 100 UNIT/ML SUBCUT SCH ×4 (02:06→17:51)
[2019-04-15] MEDS: SODIUM CHLORIDE 0.9% 1,000 ML IV SCH ×3 (02:09→13:40)
[2019-04-15 06:09] LABS: Basophils % 0.2 % (0.0-0.8); Eosinophils # 0.1 10*3/uL (0.0-0.87); Eosinophils % 1.9 % (0.00-10.9); Hemoglobin 7.8 GM/DL (14.0-18.0); Immature Granulocytes % 0.4 %; Immature Granulocytes Absolute 0.02 #; Lymphocytes # 1.5 10*3/uL (1.4-4.0); Lymphocytes % 30.5 % (21.2-54.2); Mean Corpuscular HGB Conc 31.2 GM/DL (32-36); Mean Platelet Volume 10.2 FL (9.6-12.0); Monocytes % 9.5 % (1.7-12.7); Neutrophils % 57.5 % (38.7-73.9); Platelet Count 167 T/CUMM (130-400); Red Blood Count 2.84 MC/CUMM (3.8-5.5); Red Cell Distribution Width 13.3 % (9.3-17.3); White Blood Count 4.8 T/CUMM (4-12)
[2019-04-15 06:33] LABS: Alanine Aminotransferase 19 U/L (16-61); Alkaline Phosphatase 118 U/L (45-117); Aspartate Amino Transferase 16 U/L (0-37); Bilirubin,Total < 0.39 MG/DL (0.2-1.0); Blood Urea Nitrogen 10 MG/DL (7-18); Calcium 7.7 MG/DL (8.5-10.1); Estimated Glom Filtration Rate 65 ML/MIN; Glucose 260 MG/DL (74-106); Total Protein 5.5 G/DL (6.4-8.3)
[2019-04-15 06:36] LABS: Calcium 7.6 MG/DL (8.5-10.1); Prealbumin 7.3 MG/DL (20-40)
[2019-04-15] MEDS: POTASSIUM CHLORIDE RIDER 10 MEQ in PREMIX 1 EACH IV PRN ×2 (06:53→10:10)
[2019-04-15] MEDS: PANTOPRAZOLE 40 MG VIAL IV SCH ×2 (10:12→21:26)
[2019-04-15] MEDS: FAT EMULSION 20% 250 ML IV SCH (15:16)
[2019-04-15] MEDS: TRACE ELEMENTS (5) 1 ML, MULTIVITAMIN INJ 10 ML in AMINO ACIDS/DEXT/LYTES 5-20% 2,000 ML IV SCH (16:14)
[2019-04-15] MEDS ORDERED: MAGNESIUM SULF RIDER 2 GM in PREMIX 1 EACH IV ONE (17:01)
[2019-04-16] MEDS: INSULIN LISPRO 100 UNIT/ML SUBCUT SCH ×4 (00:39→18:35)
[2019-04-16] MEDS: MORPHINE 4 MG/1 ML VIAL IV PRN ×3 (00:40→21:30)
[2019-04-16 05:10] LABS: Basophils % 0.4 % (0.0-0.8); Eosinophils # 0.1 10*3/uL (0.0-0.87); Eosinophils % 1.3 % (0.00-10.9); Hematocrit 26.1 VOL% (42.0-52.0); Hemoglobin 8.4 GM/DL (14.0-18.0); Immature Granulocytes % 0.7 %; Immature Granulocytes Absolute 0.04 #; Lymphocytes # 1.2 10*3/uL (1.4-4.0); Lymphocytes % 21.1 % (21.2-54.2); Mean Corpuscular HGB Conc 32.2 GM/DL (32-36); Mean Corpuscular Volume 86.4 FL (87-102); Mean Platelet Volume 11.2 FL (9.6-12.0); Monocytes % 8.6 % (1.7-12.7); Neutrophils % 67.9 % (38.7-73.9); Platelet Count 169 T/CUMM (130-400); Red Blood Count 3.02 MC/CUMM (3.8-5.5); Red Cell Distribution Width 13.2 % (9.3-17.3); White Blood Count 5.5 T/CUMM (4-12)
[2019-04-16 05:41] LABS: Bilirubin,Total 1.3 MG/DL (0.2-1.0); Calcium 7.7 MG/DL (8.5-10.1); Osmolality,Calculated 298.3 MOS/KG (273-304); Total Protein 5.6 G/DL (6.4-8.3)
[2019-04-16] MEDS: POTASSIUM CHLORIDE RIDER 10 MEQ in PREMIX 1 EACH IV PRN ×2 (06:41→10:27)
[2019-04-16] MEDS: SODIUM CHLORIDE 0.9% 1,000 ML IV SCH ×2 (10:28→18:35)
[2019-04-16] MEDS: PANTOPRAZOLE 40 MG VIAL IV SCH ×2 (10:28→21:32)
[2019-04-16] MEDS ORDERED: INSULIN REGULAR 100 UNIT/ML SUBCUT ONE (14:51)
[2019-04-16] MEDS: TRACE ELEMENTS (5) 1 ML, MULTIVITAMIN INJ 10 ML in AMINO ACIDS/DEXT/LYTES 5-20% 2,000 ML IV SCH (15:07)
[2019-04-16] MEDS: FAT EMULSION 20% 250 ML IV SCH (15:07)
[2019-04-16] MEDS: PROMETHAZINE 25 MG/1 ML VIAL IM PRN (21:29)
[2019-04-17] MEDS: INSULIN LISPRO 100 UNIT/ML SUBCUT SCH ×4 (01:38→18:33)
[2019-04-17] MEDS: MORPHINE 4 MG/1 ML VIAL IV PRN ×3 (02:59→13:13)
[2019-04-17] MEDS: SODIUM CHLORIDE 0.9% 1,000 ML IV SCH ×2 (05:40→13:08)
[2019-04-17 08:08] LABS: Basophils % 0.4 % (0.0-0.8); Eosinophils # 0.2 10*3/uL (0.0-0.87); Eosinophils % 4.2 % (0.00-10.9); Hematocrit 25.9 VOL% (42.0-52.0); Hemoglobin 8.3 GM/DL (14.0-18.0); Immature Granulocytes % 0.2 %; Immature Granulocytes Absolute 0.01 #; Lymphocytes # 1.1 10*3/uL (1.4-4.0); Lymphocytes % 24.4 % (21.2-54.2); Mean Corpuscular Volume 86.3 FL (87-102); Mean Platelet Volume 11.1 FL (9.6-12.0); Monocytes % 7.3 % (1.7-12.7); Neutrophils % 63.5 % (38.7-73.9); Platelet Count 158 T/CUMM (130-400); Red Cell Distribution Width 13.2 % (9.3-17.3); White Blood Count 4.6 T/CUMM (4-12)
[2019-04-17] MEDS: PANTOPRAZOLE 40 MG VIAL IV SCH (08:20)
[2019-04-17] MEDS: PROMETHAZINE 25 MG/1 ML VIAL IM PRN (08:44)
[2019-04-17] MEDS: ONDANSETRON 4 MG/2 ML VIAL IV PRN (12:18)
[2019-04-17 15:57] VITALS: BP 151/76
[2019-04-17] MEDS ORDERED: TRACE ELEMENTS (5) 1 ML, MULTIVITAMIN INJ 10 ML, INSULIN REGULAR 40 UNIT in AMINO ACIDS... IV SCH (17:00)
[2019-04-17] MEDS: FAT EMULSION 20% 250 ML IV SCH (17:50)
== END 2019-04-17 20:30 | disposition hospice, home (50) | DRG 380 ==
LOC: N.ED 08:41 → SUATTDRO 12:36 → N.EDINP 12:36 → N.5E 13:15 → N.4E 14:21
PROVIDERS: ADMIT Family Medicine; ATTEND Internal Medicine

== ENCOUNTER 2019-05-16 10:48 | Inpatient (IN) ==
[2019-05-16] MEDS ORDERED: SODIUM CHLORIDE 0.9% 500 ML IV STA (11:03)
[2019-05-16] MEDS ORDERED: ONDANSETRON 4 MG/2 ML VIAL IV STA (11:03)
[2019-05-16 11:35] LABS: Apearance,Urine CLEAR (Clear); Bacteria,Urine Occasional /HPF (Few); Bilirubin,Urine Negative (Negative); Blood, Urine Negative (Negative); Glucose,Urine (UA) Negative (Negative); Ketones,Urine 5 mg/dL (Negative); Mucus,Urine Occasional /LPF (Occasional); Nitrite,Urine Negative (Negative); Protein,Urine 30 MG/DL; RBC,Urine 5 /HPF (0-4); Squamous Epithelial Cell,Urine Occasional /HPF (0-10); Urine Color Amber (Yellow); Urine Specific Gravity 1.015 (1.001-1.035); WBC,Urine 2 /HPF (0-6)
[2019-05-16 12:15] LABS: Basophils % 0.1 % (0.0-0.8); Eosinophils % 0.1 % (0.00-10.9); Hematocrit 26.6 VOL% (42.0-52.0); Hemoglobin 8.4 GM/DL (14.0-18.0); Immature Granulocytes % 0.3 %; Immature Granulocytes Absolute 0.05 #; Lymphocytes # 1.3 10*3/uL (1.4-4.0); Lymphocytes % 8.2 % (21.2-54.2); Mean Corpuscular HGB Conc 31.6 GM/DL (32-36); Mean Corpuscular Volume 88.4 FL (87-102); Monocytes % 7.9 % (1.7-12.7); Neutrophils % 83.4 % (38.7-73.9); Platelet Count 396 T/CUMM (130-400); Red Blood Count 3.01 MC/CUMM (3.8-5.5); Red Cell Distribution Width 14.2 % (9.3-17.3); White Blood Count 16.4 T/CUMM (4-12)
[2019-05-16 12:34] LABS: Albumin 2.5 G/DL (3.4-5.0); Calcium 8.5 MG/DL (8.5-10.1); Osmolality,Calculated 276.2 MOS/KG (273-304); Total Protein 8.1 G/DL (6.4-8.3)
[2019-05-16] MEDS ORDERED: hydrALAZINE 20 MG/1 ML VIAL IV PRN (14:52)
[2019-05-16] MEDS: ONDANSETRON 4 MG/2 ML VIAL IV PRN ×2 (16:20→21:57)
[2019-05-16] MEDS: SODIUM CHLORIDE 0.9% 1,000 ML IV SCH (18:28)
[2019-05-16] MEDS: CIPROFLOXACIN INJ 400 MG in PREMIX 1 EACH IV SCH (18:28)
[2019-05-16] MEDS ORDERED: ACETAMINOPHEN 325 MG TABLET PO PRN (21:37)
[2019-05-16] MEDS: INSULIN REGULAR 100 UNIT/ML SUBCUT SCH (23:47)
[2019-05-17] MEDS: CIPROFLOXACIN INJ 400 MG in PREMIX 1 EACH IV SCH ×2 (02:29→18:13)
[2019-05-17] MEDS: SODIUM CHLORIDE 0.9% 1,000 ML IV SCH ×3 (05:40→17:00)
[2019-05-17] MEDS ORDERED: SODIUM CHLORIDE 0.9% 1,000 ML IV PRN ×2 (05:57→10:52)
[2019-05-17 06:15] LABS: Calcium 8.1 MG/DL (8.5-10.1)
[2019-05-17 06:23] LABS: Albumin 1.7 G/DL (3.4-5.0); Bilirubin,Direct 0.32 MG/DL (0.0-0.20); Bilirubin,Indirect 1.3 MG/DL (0.0-1.0); Bilirubin,Total 1.6 MG/DL (0.2-1.0); Total Protein 6.5 G/DL (6.4-8.3)
[2019-05-17 06:25] LABS: Hematocrit 19.7 VOL% (42.0-52.0); Mean Corpuscular Volume 87.9 FL (87-102); Mean Platelet Volume 10.5 FL (9.6-12.0); Platelet Count 288 T/CUMM (130-400); Red Blood Count 2.24 MC/CUMM (3.8-5.5); Red Cell Distribution Width 14.5 % (9.3-17.3); White Blood Count 10.5 T/CUMM (4-12)
[2019-05-17 06:26] LABS: Hemoglobin 6.3 GM/DL (14.0-18.0)
[2019-05-17 07:06] LABS: Folate 12.8 NG/ML (5.4-24.0); Vitamin B12 556 PG/ML (211-911)
[2019-05-17 07:29] LABS: Sedimentation Rate-Westergren 140 MM/HR (0-20)
[2019-05-17] MEDS: INSULIN REGULAR 100 UNIT/ML SUBCUT SCH ×4 (08:38→21:00)
[2019-05-17] MEDS: PANTOPRAZOLE 40 MG VIAL IV SCH (20:59)
[2019-05-18] MEDS: CIPROFLOXACIN INJ 400 MG in PREMIX 1 EACH IV SCH ×2 (02:50→17:10)
[2019-05-18 04:55] LABS: Basophils % 0.4 % (0.0-0.8); Eosinophils # 0.1 10*3/uL (0.0-0.87); Eosinophils % 0.9 % (0.00-10.9); Hematocrit 28.6 VOL% (42.0-52.0); Hemoglobin 9.2 GM/DL (14.0-18.0); Immature Granulocytes % 0.6 %; Immature Granulocytes Absolute 0.06 #; Lymphocytes # 1.5 10*3/uL (1.4-4.0); Lymphocytes % 14.2 % (21.2-54.2); Mean Corpuscular HGB Conc 32.2 GM/DL (32-36); Mean Corpuscular Volume 87.7 FL (87-102); Neutrophils % 74.9 % (38.7-73.9); Platelet Count 278 T/CUMM (130-400); Red Blood Count 3.26 MC/CUMM (3.8-5.5); Red Cell Distribution Width 14.2 % (9.3-17.3); White Blood Count 10.3 T/CUMM (4-12)
[2019-05-18 05:09] LABS: Osmolality,Calculated 277.1 MOS/KG (273-304)
[2019-05-18] MEDS: INSULIN REGULAR 100 UNIT/ML SUBCUT SCH ×4 (08:09→20:36)
[2019-05-18] MEDS: ONDANSETRON 4 MG/2 ML VIAL IV PRN (08:16)
[2019-05-18 08:56] LABS: Hemoglobin A1 (Alkaline) 97.5 % (96.5-98.5); Hemoglobin A2 (Alkaline) 2.5 % (1.5-3.5)
[2019-05-18] MEDS: PANTOPRAZOLE 40 MG VIAL IV SCH ×2 (10:22→20:37)
[2019-05-18] MEDS: SODIUM CHLORIDE 0.9% 1,000 ML IV SCH ×2 (17:16→22:36)
[2019-05-19] MEDS: CIPROFLOXACIN INJ 400 MG in PREMIX 1 EACH IV SCH ×2 (03:21→17:28)
[2019-05-19] MEDS: INSULIN REGULAR 100 UNIT/ML SUBCUT SCH ×4 (08:13→21:04)
[2019-05-19] MEDS: PANTOPRAZOLE 40 MG VIAL IV SCH ×2 (10:16→21:01)
[2019-05-19] MEDS: ONDANSETRON 4 MG/2 ML VIAL IV PRN (17:28)
[2019-05-19] MEDS: SODIUM CHLORIDE 0.9% 1,000 ML IV SCH (23:18)
[2019-05-20] MEDS: CIPROFLOXACIN INJ 400 MG in PREMIX 1 EACH IV SCH (02:45)
[2019-05-20 05:58] LABS: Albumin 1.7 G/DL (3.4-5.0); Bilirubin,Direct 0.15 MG/DL (0.0-0.20); Bilirubin,Total 1.1 MG/DL (0.2-1.0); Prealbumin 4.1 MG/DL (20-40); Total Protein 6.4 G/DL (6.4-8.3)
[2019-05-20 08:40] VITALS: BP 140/75
[2019-05-20] MEDS: ONDANSETRON 4 MG/2 ML VIAL IV PRN (09:37)
[2019-05-20] MEDS: PANTOPRAZOLE 40 MG VIAL IV SCH (09:38)
[2019-05-20] MEDS: INSULIN REGULAR 100 UNIT/ML SUBCUT SCH (09:38)
== END 2019-05-20 12:10 | disposition home or self-care (01) | DRG 439 ==
LOC: N.ED 10:48 → N.EDINP 14:52 → N.4E 15:26
PROVIDERS: ADMIT Internal Medicine Geriatric Medicine; ATTEND Internal Medicine Geriatric Medicine

== ENCOUNTER 2021-08-30 21:47 | Observation (INO) ==
[2021-08-30 22:15] LABS: Basophils % 0.1 % (0.0-0.8); Hematocrit 30.8 VOL% (42.0-52.0); Hemoglobin 9.7 GM/DL (14.0-18.0); Immature Granulocytes % 0.7 %; Immature Granulocytes Absolute 0.07 #; Lymphocytes # 0.5 10*3/uL (1.4-4.0); Lymphocytes % 4.9 % (21.2-54.2); Mean Corpuscular HGB Conc 31.5 GM/DL (32-36); Mean Corpuscular Volume 92.2 FL (87-102); Mean Platelet Volume 9.6 FL (9.6-12.0); Monocytes # 0.4 10*3/uL (0.11-0.8); Monocytes % 3.6 % (1.7-12.7); Neutrophils % 90.7 % (38.7-73.9); Platelet Count 204 T/CUMM (130-400); Red Blood Count 3.34 MC/CUMM (3.8-5.5); Red Cell Distribution Width 13.2 % (9.3-17.3); White Blood Count 10.6 T/CUMM (4-12)
[2021-08-30 22:33] LABS: Albumin 3.3 G/DL (3.4-5.0); Bilirubin,Total 0.4 MG/DL (0.20-1.00); Calcium 8.6 MG/DL (8.5-10.1); Potassium 4.6 MMOL/L (3.5-5.1); Total Protein 8.2 G/DL (6.4-8.2)
[2021-08-30] MEDS ORDERED: ONDANSETRON 4 MG/2 ML VIAL IV ONE (22:33)
[2021-08-30] MEDS ORDERED: SODIUM CHLORIDE 0.9% 1,000 ML IV STA (22:33)
[2021-08-30 22:46] LABS: Lymphocytes 4 % (20-55); Total Cells Counted 100
[2021-08-30 22:47] LABS: Platelet Estimate Normal
[2021-08-31] MEDS ORDERED: PROMETHAZINE INJ 12.5 MG in SODIUM CHLORIDE 0.9% 50 ML IV STA (00:48)
[2021-08-31 01:13] LABS: Hyaline Casts,Urine 5 /LPF (0-3); Mucus,Urine Occasional /LPF (Occasional); RBC,Urine 8 /HPF (0-4)
[2021-08-31 01:18] LABS: Bilirubin,Urine Negative (Negative); Blood, Urine Moderate mg/dL (Negative); Glucose,Urine (UA) >=1000 mg/dL (Negative); Ketones,Urine Negative (Negative); Nitrite,Urine Negative (Negative); Protein,Urine >=300 mg/dL (Negative); Urine Appearance Clear (Clear); Urine Color Yellow (Yellow); Urine Specific Gravity 1.025 (1.001-1.035); Urine Urobilinogen 0.2 eU/dL (<2.0); Urine pH 5.5 (4.5-8.0)
[2021-08-31] MEDS ORDERED: GLUCAGON 1 MG VIAL IM PRN (01:45)
[2021-08-31] MEDS ORDERED: DEXTROSE 10% 250 ML BAG IV PRN (02:03)
[2021-08-31] MEDS: DEXTROSE 5% NACL 0.9% 1,000 ML IV SCH ×2 (04:40→22:24)
[2021-08-31] MEDS: PROMETHAZINE 25 MG/1 ML VIAL IM PRN ×2 (05:35→11:20)
[2021-08-31 05:42] LABS: Basophils % 0.1 % (0.0-0.8); Hematocrit 29.4 VOL% (42.0-52.0); Hemoglobin 9.4 GM/DL (14.0-18.0); Immature Granulocytes % 0.5 %; Immature Granulocytes Absolute 0.05 #; Lymphocytes # 0.5 10*3/uL (1.4-4.0); Lymphocytes % 4.9 % (21.2-54.2); Mean Corpuscular Volume 91.9 FL (87-102); Monocytes # 0.6 10*3/uL (0.11-0.8); Monocytes % 5.4 % (1.7-12.7); Neutrophils % 89.1 % (38.7-73.9); Platelet Count 191 T/CUMM (130-400); Red Cell Distribution Width 13.2 % (9.3-17.3); White Blood Count 10.6 T/CUMM (4-12)
[2021-08-31 06:17] LABS: Bilirubin,Total 0.4 MG/DL (0.20-1.00); Calcium 8.4 MG/DL (8.5-10.1); Osmolality,Calculated 303.7 MOS/KG (273-304); Potassium 4.6 MMOL/L (3.5-5.1); Total Protein 7.6 G/DL (6.4-8.2)
[2021-08-31 08:22] LABS: Band Neutrophils 2 % (0-10); Lymphocytes 4 % (20-55); Platelet Estimate Normal; Total Cells Counted 100
[2021-08-31 08:23] LABS: Anisocytosis 1+; Burr Cells Few; Ovalocytes Few; Tear Drop Cells Few
[2021-08-31] MEDS: INSULIN REGULAR 100 UNIT/ML SUBCUT SCH ×4 (08:48→22:20)
[2021-08-31] MEDS ORDERED: PANTOPRAZOLE 40 MG TABLET PO SCH (09:00)
[2021-08-31] MEDS ORDERED: ENOXAPARIN 30 MG/0.3 ML SYRINGE SUBCUT SCH (09:00)
[2021-08-31] MEDS: hydrALAZINE 20 MG/1 ML VIAL IV SCH ×3 (09:05→22:54)
[2021-08-31] MEDS: SODIUM CHLORIDE 0.9% 1,000 ML IV SCH ×2 (09:50→18:00)
[2021-08-31] MEDS: MORPHINE 2 MG/1 ML SYRINGE IV PRN ×4 (10:25→22:21)
[2021-08-31] MEDS: FERROUS SULFATE 325 MG TABLET PO SCH ×2 (12:00→22:20)
[2021-08-31] MEDS: amLODIPine 5 MG TABLET PO SCH (12:00)
[2021-08-31] MEDS: POTASSIUM CHLORIDE 20 MEQ TABLET PO SCH (12:00)
[2021-08-31] MEDS: METOPROLOL TARTRATE 25 MG TABLET PO SCH ×2 (12:00→22:18)
[2021-08-31] MEDS: CHLORTHALIDONE 25 MG TABLET PO SCH (12:00)
[2021-08-31] MEDS ORDERED: ONDANSETRON 4 MG/2 ML VIAL IV PRN (13:48)
[2021-08-31] MEDS ORDERED: DEXTROSE 50% 25 GM/50 ML SYRINGE IV ONE (14:11)
[2021-08-31] MEDS: LACTULOSE 20 GM/30 ML UDCUP PO SCH ×2 (16:30→22:54)
[2021-08-31] MEDS ORDERED: FLUTICASONE 50 MCG NASAL SPRAY 16 GM BOTTLE BOTH NARES PRN (21:00)
[2021-08-31] MEDS: DONEPEZIL 10 MG TABLET PO SCH (22:20)
[2021-08-31] MEDS: CITALOPRAM 20 MG TABLET PO SCH (22:53)
[2021-09-01] MEDS: SODIUM CHLORIDE 0.9% 1,000 ML IV SCH ×2 (02:00→11:47)
[2021-09-01] MEDS: MORPHINE 2 MG/1 ML SYRINGE IV PRN ×2 (02:45→09:44)
[2021-09-01] MEDS: LACTULOSE 20 GM/30 ML UDCUP PO SCH ×2 (02:48→09:40)
[2021-09-01] MEDS: hydrALAZINE 20 MG/1 ML VIAL IV SCH ×2 (03:00→09:41)
[2021-09-01 05:03] LABS: Basophils % 0.2 % (0.0-0.8); Eosinophils % 0.1 % (0.00-10.9); Hematocrit 25.2 VOL% (42.0-52.0); Hemoglobin 7.6 GM/DL (14.0-18.0); Immature Granulocytes % 0.5 %; Immature Granulocytes Absolute 0.06 #; Lymphocytes # 1.1 10*3/uL (1.4-4.0); Lymphocytes % 10.2 % (21.2-54.2); Mean Corpuscular HGB Conc 30.2 GM/DL (32-36); Mean Corpuscular Volume 95.5 FL (87-102); Mean Platelet Volume 10.4 FL (9.6-12.0); Monocytes # 0.9 10*3/uL (0.11-0.8); Monocytes % 8.2 % (1.7-12.7); Neutrophils % 80.8 % (38.7-73.9); Platelet Count 168 T/CUMM (130-400); Red Blood Count 2.64 MC/CUMM (3.8-5.5); Red Cell Distribution Width 13.8 % (9.3-17.3); White Blood Count 11.1 T/CUMM (4-12)
[2021-09-01 05:17] LABS: Calcium 8.3 MG/DL (8.5-10.1); Potassium 4.1 MMOL/L (3.5-5.1)
[2021-09-01] MEDS: CITALOPRAM 20 MG TABLET PO SCH (09:40)
[2021-09-01] MEDS: FERROUS SULFATE 325 MG TABLET PO SCH ×2 (09:40→20:56)
[2021-09-01] MEDS: PANTOPRAZOLE 40 MG VIAL IV SCH (09:40)
[2021-09-01] MEDS: METOPROLOL TARTRATE 25 MG TABLET PO SCH ×2 (09:40→20:56)
[2021-09-01] MEDS: POTASSIUM CHLORIDE 20 MEQ TABLET PO SCH (09:40)
[2021-09-01] MEDS: CHOLECALCIFEROL 400 UNIT TABLET PO SCH (09:40)
[2021-09-01] MEDS: amLODIPine 5 MG TABLET PO SCH (09:40)
[2021-09-01] MEDS: CHLORTHALIDONE 25 MG TABLET PO SCH (09:41)
[2021-09-01] MEDS: INSULIN REGULAR 100 UNIT/ML SUBCUT SCH ×4 (11:47→20:57)
[2021-09-01] MEDS ORDERED: METOCLOPRAMIDE 10 MG/2 ML VIAL IV SCH (15:00)
[2021-09-01] MEDS ORDERED: METOCLOPRAMIDE 10 MG/2 ML VIAL IV PRN (15:01)
[2021-09-01] MEDS: SODIUM CHLORIDE 0.45% 1,000 ML IV SCH (16:06)
[2021-09-01] MEDS: DONEPEZIL 10 MG TABLET PO SCH (20:56)
[2021-09-02 06:19] LABS: Basophils % 0.3 % (0.0-0.8); Eosinophils # 0.1 10*3/uL (0.0-0.87); Eosinophils % 1.2 % (0.00-10.9); Hematocrit 27.5 VOL% (42.0-52.0); Hemoglobin 8.3 GM/DL (14.0-18.0); Lymphocytes # 1.6 10*3/uL (1.4-4.0); Lymphocytes % 15.5 % (21.2-54.2); Mean Corpuscular HGB Conc 30.2 GM/DL (32-36); Mean Corpuscular Volume 98.2 FL (87-102); Mean Platelet Volume 10.6 FL (9.6-12.0); Monocytes % 9.3 % (1.7-12.7); Neutrophils % 72.7 % (38.7-73.9); Platelet Count 152 T/CUMM (130-400); Red Cell Distribution Width 13.7 % (9.3-17.3); White Blood Count 10.5 T/CUMM (4-12)
[2021-09-02 06:33] LABS: Calcium 8.5 MG/DL (8.5-10.1); Osmolality,Calculated 296.6 MOS/KG (273-304); Potassium 4.7 MMOL/L (3.5-5.1)
[2021-09-02] MEDS: MORPHINE 2 MG/1 ML SYRINGE IV PRN ×3 (08:40→20:10)
[2021-09-02] MEDS: PANTOPRAZOLE 40 MG VIAL IV SCH (08:43)
[2021-09-02] MEDS: INSULIN REGULAR 100 UNIT/ML SUBCUT SCH ×4 (08:47→20:17)
[2021-09-02] MEDS: FERROUS SULFATE 325 MG TABLET PO SCH ×2 (09:15→17:17)
[2021-09-02] MEDS: METOPROLOL TARTRATE 25 MG TABLET PO SCH ×2 (09:16→20:58)
[2021-09-02] MEDS: amLODIPine 5 MG TABLET PO SCH (09:16)
[2021-09-02] MEDS: CHOLECALCIFEROL 400 UNIT TABLET PO SCH (09:17)
[2021-09-02] MEDS: CITALOPRAM 20 MG TABLET PO SCH (09:18)
[2021-09-02] MEDS: POTASSIUM CHLORIDE 20 MEQ TABLET PO SCH (09:18)
[2021-09-02] MEDS: SODIUM CHLORIDE 0.45% 1,000 ML IV SCH ×2 (09:30→13:20)
[2021-09-02] MEDS ORDERED: DEXAMETHASONE 10 MG/1 ML VIAL ONE (11:41)
[2021-09-02] MEDS ORDERED: propofoL 200 MG/20 ML VIAL IV ONE (11:54)
[2021-09-02] MEDS ORDERED: fentaNYL 100 MCG/2 ML VIAL ONE (11:54)
[2021-09-02] MEDS ORDERED: LIDOCAINE 2% 5 ML VIAL ONE (11:54)
[2021-09-02] MEDS ORDERED: MIDAZOLAM 2 MG/2 ML VIAL ONE (11:55)
[2021-09-02] MEDS ORDERED: LACTATED RINGERS 1,000 ML IV SCH (12:00)
[2021-09-02] MEDS ORDERED: ceFAZolin 1,000 MG VIAL ONE (12:09)
[2021-09-02] MEDS ORDERED: TISSUE ADHESIVE 1 EACH APPLICATOR TOP ONE (12:20)
[2021-09-02] MEDS: DONEPEZIL 10 MG TABLET PO SCH (20:59)
[2021-09-03] MEDS: SODIUM CHLORIDE 0.45% 1,000 ML IV SCH (01:36)
[2021-09-03 05:23] LABS: Basophils % 0.4 % (0.0-0.8); Eosinophils # 0.2 10*3/uL (0.0-0.87); Eosinophils % 2.9 % (0.00-10.9); Hematocrit 25.3 VOL% (42.0-52.0); Hemoglobin 7.6 GM/DL (14.0-18.0); Immature Granulocytes % 0.9 %; Immature Granulocytes Absolute 0.07 #; Lymphocytes # 1.1 10*3/uL (1.4-4.0); Lymphocytes % 13.5 % (21.2-54.2); Mean Corpuscular Volume 97.3 FL (87-102); Mean Platelet Volume 10.5 FL (9.6-12.0); Monocytes # 0.8 10*3/uL (0.11-0.8); Monocytes % 9.9 % (1.7-12.7); Neutrophils % 72.4 % (38.7-73.9); Platelet Count 136 T/CUMM (130-400); Red Cell Distribution Width 13.7 % (9.3-17.3); White Blood Count 8.1 T/CUMM (4-12)
[2021-09-03 05:43] LABS: Calcium 7.9 MG/DL (8.5-10.1); Osmolality,Calculated 291.3 MOS/KG (273-304); Potassium 4.6 MMOL/L (3.5-5.1)
[2021-09-03] MEDS: MORPHINE 2 MG/1 ML SYRINGE IV PRN (07:33)
[2021-09-03] MEDS: CHOLECALCIFEROL 400 UNIT TABLET PO SCH (08:50)
[2021-09-03] MEDS: METOPROLOL TARTRATE 25 MG TABLET PO SCH (08:50)
[2021-09-03] MEDS: FERROUS SULFATE 325 MG TABLET PO SCH (08:51)
[2021-09-03] MEDS: amLODIPine 5 MG TABLET PO SCH (08:51)
[2021-09-03] MEDS: CITALOPRAM 20 MG TABLET PO SCH (08:51)
[2021-09-03] MEDS: PANTOPRAZOLE 40 MG VIAL IV SCH (08:53)
[2021-09-03] MEDS: INSULIN REGULAR 100 UNIT/ML SUBCUT SCH ×2 (08:54→12:33)
[2021-09-03 13:06] VITALS: BP 115/77
== END 2021-09-03 13:38 | disposition home or self-care (01) ==
LOC: N.ED 21:47 → N.EDINP 21:47 → SUATTDRO 08-31 01:45 → N.3E 08-31 19:34 → N.2E 08-31 19:34 → N.3E 08-31 22:33 → UNDODISIN 09-03 13:38
PROVIDERS: ADMIT Family Medicine; ATTEND Emergency Medicine